=== PATIENT | female | born 1955 | race Caucasian/White ===

== ENCOUNTER 2018-04-20 05:54 | Day surgery (SDC) | payer BC ==
[~2018-04-20] VITALS: Ht 170.2 cm; Wt 118.4 kg
[~2018-04-20 05:54] MED LIST: ASPI81CH PO; CELE200 PO; Hair, Skin & N1 EACH PO; LOSA25 PO; Neurontin800 MG PO
--- NOTE | 2018-04-20 07:37 | NUR ---
History, Chart, Medications and Allergies reviewed before start of procedure. Patient States Post-Procedure ride home has been arranged. Patient confirms NPO status and agrees with scheduled surgery.
--- NOTE | 2018-04-20 11:59 | NUR ---
Discharge instructions reviewed with patient. Patient verbalizes understanding. Copy given to patient to take home. PT HAS RX AND ALL PERSONAL BELONGINGS. WILL BE PT RIDE HOME. Patient States Post-Procedure ride home has been arranged. Discharged via wheelchair to private car for ride home.
== END 2018-04-20 22:37 | disposition home or self-care (01) ==
LOC: ORSCMMR 05:54 → ORD 07:30 → ORSCMMR 07:30
PROVIDERS: Surgery
PROC: 0JBN0ZZ Excision of Right Lower Leg Subcutaneous Tissue and Fascia, Open Approach (ICD-10-PCS; principal; 2018-04-20 10:30)
DX: D21.21 Benign neoplasm of connective and other soft tissue of right lower limb, including hip (principal); I10 Essential (primary) hypertension; G47.33 Obstructive sleep apnea (adult) (pediatric); E66.01 Morbid (severe) obesity due to excess calories; Z68.41 Body mass index [BMI] 40.0-44.9, adult; Z79.899 Other long term (current) drug therapy; Z79.82 Long term (current) use of aspirin
CPT/HCPCS: 88305; J1100; J2250; J2405; J3010; J7120

== ENCOUNTER → 2025-01-19 | Outpatient (CLI) | payer MEDICARE, BC ==
[2025-01-19 09:34] LABS: BASOPHILS ABSOLUTE AUTO 0.03 K/mm3 (0.00-0.23); BASOPHILS PERCENT AUTO 0 % (0-2); EOSINOPHILS ABSOLUTE AUTO 0.16 K/mm3 (0.00-0.68); EOSINOPHILS PERCENT AUTO 2 % (0-6); Hematocrit 43.8 % (33.0-51.0); Hemoglobin 14.6 g/dL (11.5-16.0); IMMATURE GRAN ABSOLUTE AUTO 0.02 K/mm3 (0.00-0.10); IMMATURE GRAN PERCENT AUTO 0 % (0-1); LYMPHOCYTES ABSOLUTE AUTO 1.66 K/mm3 (0.84-5.20); LYMPHOCYTES PERCENT AUTO 23 % (21-46); MONOCYTES ABSOLUTE AUTO 0.61 K/mm3 (0.16-1.47); MONOCYTES PERCENT AUTO 9 % (4-13); Mean Corpuscular HGB Conc 33.3 g/dL (31.5-36.5); Mean Corpuscular Volume 89 fL (80-100); NEUTROPHILS ABSOLUTE AUTO 4.73 K/mm3 (1.96-9.15); NEUTROPHILS PERCENT AUTO 66 % (41-73); NRBC ABSOLUTE 0.00 K/mm3 (0.00-0.02); NRBC Auto 0.0 /100 WBC (0.0-0.2); Platelet Count 298 K/mm3 (150-400); RDW Coefficient Variation 13.6 % (11.7-14.2); RDW Standard Deviation 44.0 fL (35.1-46.3)
== END ==
LOC: LAB SHORT 09:28 → LAB 09:28
PROVIDERS: Physician Assistant Medical
DX: L03.115 Cellulitis of right lower limb (principal); M96.89 Other intraoperative and postprocedural complications and disorders of the musculoskeletal system
CPT/HCPCS: 85025; 87070; 87075; 87077; 87186; 87205

== ENCOUNTER → 2025-02-01 | Outpatient (CLI) | payer MEDICARE, BC ==
[2025-02-03 16:24] LABS: C DIFFICILE DNA NEGATIVE (Negative)
== END ==
LOC: LAB SHORT 21:05 → LAB 21:05
PROVIDERS: Physician Assistant
DX: R19.7 Diarrhea, unspecified (principal)
CPT/HCPCS: 87493